=== PATIENT | female | born 1980 | race Caucasian/White ===

== ENCOUNTER 2016-10-20 17:48 | Emergency (ER) | payer OTHER ==
[2016-10-20 17:51] VITALS: BP 184/107; PULSE 104; RESP 16; O2SAT 100
--- NOTE | 2016-10-20 20:01 | ED.REPORT ---
HPI-Psychiatric Illness Date of Service Oct 20, 2016 ED Provider: Hai Orr DO A 36 year old female with a history of paranoia, daily alcohol use, daily THC use, smoking, and methamphetamine use presents to the ED complaining of anxiety. The pt has been undergoing significant personal stress during the last few months, which has been brought on mostly by her living situation. The pt feels that she is "suffering from crazy people messing with her mind" and is concerned that she is "going crazy" and getting more paranoid. The pt states that she has trust issues and feels "unable to work or do anything." She has taken one Valium today. The pt states that she tried heroin once and does not use methamphetamines daily, though she has used within the last couple of days. She denies suicidal or homicidal ideation. Nursing Notes Stated Complaint: ANXIETY Chief Complaint: Psychiatric Complaint Nursing Notes Reviewed: Yes Allergies: Coded Allergies: codeine (Verified Allergy, Intermediate, 10/20/16) Penicillins (Verified Allergy, Unknown, 10/20/16) cephalexin (Verified Allergy, Unknown, 10/20/16) General Time Seen by MD: 20:01 Chief Complaint Anxious Hx Obtained From: Patient Arrived By: Walk-in Onset Occurred: More than a week ago... Symptom Duration: Since onset Recent Healthcare: No recent doctor visit, No recent hospitalization Similar Sx Previous: Yes Risk-Psychiatric Illness Suicide Risk Stratification Suicide Risk Factors - Adult: : Alcohol use: Substance abuseNo: Prior psych admission RF Statements: Risk factors reviewed Past Medical History Past Medical History paranoia Past Surgical History none reported Smoking History Current Every Day Smoker Social History tried heroin once Drug Use: Meth, THC Ambulatory Status Independent Review of Systems Review of Systems Note: paranoia Constitutional: Reports: Fever Respiratory: Denies: Non-productive cough Cardiovascular: Denies: Chest pain GI: Denies: Abdominal pain Skin: Denies Rash Psychiatric: Reports: Anxiety, Denies: Homicidal ideation, Suicidal ideation Complete sys rev & neg: except as marked. Physical Exam Initial Vital Signs Vital Signs (First) Date Time Temp Pulse Resp B/P Pulse Ox O2 Delivery O2 Flow Rate FiO2 10/20/16 17:51 36.3 104 16 184/107 100 Room Air Initial VS: Reviewed General/Constitutional: Awake, Alert Neurologic: Oriented X3, Speech NL, No motor deficits, No sensory deficits Psychiatric: Mood NL Paranoid Head / Eyes: Atraumatic, Normocephalic ENT: Atraumatic, Airway patent, Mucous membranes moist Respiratory / Chest: Atraumatic, No respiratory distress Cardiovascular: Heart rate NL Abdomen: Atraumatic Skin: Atraumatic, Color NL, No rash Neck: Atraumatic, Supple, Full range of motion Back: Atraumatic, Full range of motion Upper Extremity / MS: Atraumatic, Full range of motion Lower Extremity / Pelvis / MS: Atraumatic, Full range of motion Interpretation & Diagnostics Lab Results Interpretation Test 10/20/16 20:18 Urine Opiates Screen Negative Urine Methadone Screen Negative Urine Barbiturates Screen Negative Urine Amphetamines Screen Positive Urine Benzodiazepines Screen Negative Urine Cocaine Metabolite Screen Negative Urine Cannabinoids Screen Negative Pulse Oximetry Interpretation Pulse Oximetry Interpretation: 100% on room air Pulse Oximetry: Pulse Ox normal Re-Eval/Medical Decision Med Decision/Clinical Course 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 No angina caters for hospitalization. Our social media developer evaluated her. He does not recommend hospitalization either. She actually felt well and left after speaking with our social media developer. Referral clinics/resources were provided. Re-Evaluation/Progress : Time of Eval: 20:01 )( Re-Eval Psychiatric: No danger to self, No danger to others, No suicidal ideation, No homicidal ideation Re-Evaluation/Progress Note: Pt informed of the plan for social work consult and discharge during the initial interview. The pt understands and agrees with the plan. All questions are addressed at this time. Consultation : Call Returned at: 20:17 Note: Spoke to social media developer regarding pt's case. sorting cows worker recommends discharge with anxiety medications. Counseled Regarding: Diagnosis, Lab results, Need for follow-up, When/why to return to ED Discharge & Departure Impression: Primary Impression: Anxiety reaction )( Condition at Discharge: No danger to self, No danger to others Disposition: Home Discharge Condition All VS Reviewed: Yes Condition: Stable Patient Instructions: Generalized Anxiety Disorder (ED) Additional Instructions: Rest tonight. Stay in the company of a responsible adult. Follow up with the resources provided by the social media developer. Follow up with your primary care physician this week for further evaluation. Return to the emergency department if you develop any new or worsening symptoms. Referrals: [facility] Scribe Attestation Portions of this note were transcribed by Sanju Mohan. I, Dr. Orr personally performed the history, physical exam and medical decision-making; I reviewed and confirmed the accuracy of the information in the transcribed note. Signed by: Pedro Strauss, 10/20/2016 and 2021. copies to: [facility] Hai Orr DO Oct 20, 2016 20:01 SANJU MOHAN Oct 20, 2016 20:14
[2016-10-20] MEDS ORDERED: LORazepam 1 mg Tablet PO ONE (20:15)
== END 2016-10-20 20:44 | disposition home or self-care (01) ==
LOC: SED 17:48 → EDBD 17:48 → SED 20:44
DX: F41.1 Generalized anxiety disorder (principal); F17.200 Nicotine dependence, unspecified, uncomplicated; Z88.0 Allergy status to penicillin; Z88.1 Allergy status to other antibiotic agents; Z88.5 Allergy status to narcotic agent
CPT/HCPCS: 99284; G0480

== ENCOUNTER 2016-10-20 22:14 | Emergency (ER) | payer OTHER ==
[~2016-10-20] VITALS: Ht 162.6 cm; Wt 75.0 kg
[2016-10-20 22:24] VITALS: BP 138/91; PULSE 84; RESP 16; O2SAT 100
--- NOTE | 2016-10-20 23:19 | ED.REPORT ---
HPI-Psychiatric Illness Date of Service Oct 20, 2016 ED Provider: Hai Orr DO A 36 year old female with a history of paranoia presents to the ED due to anxiety. The pt was seen earlier tonight in the ED for similar complaints. She did not feel comfortable returning home following discharge at that time. The pt was brought to P1, placed in a gown, and fell asleep immediately. No signs of self mutilation are noted. Nursing Notes Stated Complaint: MENTAL HEALTH Chief Complaint: Psychiatric Complaint Nursing Notes Reviewed: Yes Allergies: Coded Allergies: codeine (Verified Allergy, Intermediate, 10/20/16) Penicillins (Verified Allergy, Unknown, 10/20/16) cephalexin (Verified Allergy, Unknown, 10/20/16) General Time Seen by MD: 23:19 Chief Complaint Anxious Hx Obtained From: Patient Arrived By: Walk-in Onset Occurred: More than a week ago... Symptom Duration: Since onset Recent Healthcare: Recent doctor visit Similar Sx Previous: Yes Risk-Psychiatric Illness Suicide Risk Stratification Suicide Risk Factors - Adult: : Alcohol use: Substance abuse RF Statements: Risk factors reviewed Past Medical History Past Medical History paranoia Past Surgical History none reported Smoking History Current Every Day Smoker Social History "tried heroin once" Drug Use: Meth, THC Ambulatory Status Independent Review of Systems Review of Systems Note: Paranoia Constitutional: Denies: Fever Respiratory: Denies: Non-productive cough Cardiovascular: Denies: Chest pain GI: Denies: Abdominal pain Skin: Denies Rash Psychiatric: Reports: Anxiety Complete sys rev & neg: except as marked. Physical Exam Initial Vital Signs Vital Signs (First) Date Time Temp Pulse Resp B/P Pulse Ox O2 Delivery O2 Flow Rate FiO2 10/20/16 22:24 36.7 84 16 138/91 100 Room Air Initial VS: Reviewed General/Constitutional: Awake, Alert Neurologic: Oriented X3, Speech NL, No motor deficits, No sensory deficits Psychiatric: Not suicidal, Not homicidal Abnormal Mood/Affect: Positive: Anxious, Flight of ideas tangential Head / Eyes: Atraumatic, Normocephalic, PERRL, EOMI ENT: Atraumatic, Airway patent, Mucous membranes moist Respiratory / Chest: Atraumatic, Breath sounds NL, Breath sounds = bilat, No respiratory distress Cardiovascular: Heart rate NL, Regular rhythm, Heart sounds NL Abdomen: Atraumatic, Soft, Non-tender Skin: Atraumatic, Color NL, No rash, Warm, Dry no signs of self mutilation Neck: Atraumatic, Supple, Full range of motion Back: Atraumatic, Full range of motion Upper Extremity / MS: Atraumatic, Full range of motion Lower Extremity / Pelvis / MS: Atraumatic, Full range of motion Interpretation & Diagnostics Lab Results Interpretation Test 10/20/16 23:00 Hold Urine Received (Received) Pulse Oximetry Interpretation Pulse Oximetry Interpretation: 100% on room air Pulse Oximetry: Pulse Ox normal Re-Eval/Medical Decision Med Decision/Clinical Course The patient is likely coming down from methamphetamines. She will be observed closely tonight. When she is sober and lucid, she will be seen by DCR or social work. Counseled Regarding: Diagnosis, Lab results Discharge & Departure Shift Change Sign-Out Patient Care Transferred: Yes Discussed Complaint(s): Yes Laboratory Evaluation: Lab evaluation discussed Impression: Primary Impression: Acute psychosis Additional Impression: Methamphetamine abuse Discharge Condition All VS Reviewed: Yes Condition: Stable Referrals: [facility] Care Transferred to: Dr. Carlisle Care Transferred at: 03:00 Pedro Attestation Portions of this note were transcribed by Sanju Mohan. I, Dr. Orr personally performed the history, physical exam and medical decision-making; I reviewed and confirmed the accuracy of the information in the transcribed note. Signed by: Pedro Strauss, 10/21/2016 and 0027. copies to: [facility] Hai Orr DO Oct 20, 2016 23:19 SANJU MOHAN Oct 21, 2016 00:29
[2016-10-21 05:10] VITALS: BP 121/83; PULSE 74; RESP 16; O2SAT 96
[2016-10-21 11:18] VITALS: BP 141/64; PULSE 91; RESP 12; O2SAT 96
[2016-10-21 11:48] VITALS: BP 141/64; PULSE 91; RESP 12; O2SAT 96
== END 2016-10-21 11:48 | disposition home or self-care (01) ==
LOC: SED 22:14
DX: F19.259 Other psychoactive substance dependence with psychoactive substance-induced psychotic disorder, unspecified (principal); F15.259 Other stimulant dependence with stimulant-induced psychotic disorder, unspecified; F22 Delusional disorders; F17.200 Nicotine dependence, unspecified, uncomplicated; Z88.5 Allergy status to narcotic agent; Z88.0 Allergy status to penicillin; Z88.1 Allergy status to other antibiotic agents